=== PATIENT | female | born 1970 | race Caucasian/White ===

== ENCOUNTER 2019-11-03 22:00 | Emergency (ER) | payer BC ==
[~2019-11-03] VITALS: Ht 157.5 cm; Wt 81.7 kg
[2019-11-03] MEDS ORDERED: PROG100 (22:14)
== END 2019-11-03 23:18 | disposition home or self-care (01) ==
LOC: ER 22:00
DX: S91.311A Laceration without foreign body, right foot, initial encounter (principal); W20.8XXA Other cause of strike by thrown, projected or falling object, initial encounter
CPT/HCPCS: 12001; 73620; 99283-25; A9270-GY

== ENCOUNTER → 2023-08-18 | Outpatient (CLI) | payer BC ==
[~2023-08-18] MED LIST: PROG100
[2023-08-25 22:11] LABS: HPV HIGH RISK BY TMA Not Detected; HPV SOURCE Cervical
== END ==
LOC: LAB SHORT 19:18 → LAB 19:18
PROVIDERS: Family Medicine
DX: Z01.419 Encounter for gynecological examination (general) (routine) without abnormal findings (principal)
CPT/HCPCS: 87624; G0123

== ENCOUNTER 2024-01-10 08:41 | Day surgery (SDC) | payer BC ==
[~2024-01-10] VITALS: Ht 157.5 cm; Wt 77.0 kg
[~2024-01-10 08:41] MED LIST changes: +Lactated Ringer's 1,000 ML IV SCH
[2024-01-10] MEDS ORDERED: Budeprion Xl300 MG PO (09:42)
[2024-01-10] MEDS ORDERED: ALLEGRA ALLERG180 MG PO (09:44)
[2024-01-10] MEDS ORDERED: ENAL10 PO (09:44)
[2024-01-10] MEDS ORDERED: PROG100 PO (09:45)
[2024-01-10 09:53] VITALS: BP 137/86
[2024-01-10] MEDS ORDERED: propofoL 20 ML IV ONE (09:58)
[2024-01-10] MEDS ORDERED: Benzocaine Oral Spray 0.5ML UD ONE (09:58)
[2024-01-10] MEDS ORDERED: Midazolam HCl 1MG / ML 2ML Vial ONE (10:10)
--- NOTE | 2024-01-10 10:27 | NUR ---
01/10/24 1027 Steven Ritchie HISTORY, CHART, MEDICATIONS AND ALLERGIES REVIEWED BEFORE START OF PROCEDURE. PATIENT CONFIRMS NPO STATUS AND AGREES WITH SCHEDULED PROCEDURE. 3-LEAD EKG REVIEWED WITH PHYSICIAN PRIOR TO START OF PROCEDURE. MONITOR INTACT WITH CONTINUOUS PULSE OXIMETRY,CAPNOGRAPHY, 3-LEAD EKG, INTERMITTENT BP. SUPPLEMENTAL O2 TO BE TITRATED THROUGHOUT PROCEDURE TO MAINTAIN O2 SATURATION ABOVE 90%. PATIENT DETERMINED TO BE ASA APPROPRIATE FOR PROPOFOL SEDATION PRIOR TO START OF PROCEDURE BY
[2024-01-10 10:34] VITALS: BP 124/75
--- NOTE | 2024-01-10 10:34 | NUR ---
PT TO DAY SURGERY STEP DOWN; BEDSIDE REPORT RECEIEVED. PT IS AWAKE, ALERT AND ORIENTED; ABLE TO MOVE SELF IN BED. VSS. PT HAS NO COMPLAINTS.
--- NOTE | 2024-01-10 10:38 | NUR ---
DR OLIVAS AT BEDSIDE DISCUSSING FINDING 2 ULCERS. PLAN TO CALL IN PROTONIX 40MG DAILY FOR PT AND PT TO DISCONTINUE NSAIDS.
--- NOTE | 2024-01-10 10:46 | NUR ---
Discharge instructions reviewed with patient. Patient verbalizes understanding. Copy given to patient to take home. Patient States Post-Procedure ride home has been arranged.
[2024-01-10 10:48] VITALS: BP 115/68
--- NOTE | 2024-01-10 10:54 | NUR ---
TOLERATING PO FLUIDS WELL
--- NOTE | 2024-01-10 11:02 | NUR ---
PROTONIX 40MG PO DAILY X30 TABS AND 6 REFILLS CALLED INTO [facility]. Patient up to Ambulate independently. Gait steady.
--- NOTE | 2024-01-10 11:06 | NUR ---
Discharged via wheelchair to private car for ride home.
== END 2024-01-10 11:07 | disposition home or self-care (01) ==
LOC: ORSCMMR 08:41 → ORD 09:30 → ORSCMMR 11:07
PROVIDERS: Internal Medicine Gastroenterology
PROC: 0DB98ZX Excision of Duodenum, Via Natural or Artificial Opening Endoscopic, Diagnostic (ICD-10-PCS; principal; 2024-01-10 09:30)
PROC: 0DB58ZX Excision of Esophagus, Via Natural or Artificial Opening Endoscopic, Diagnostic (ICD-10-PCS; principal; 2024-01-10 09:30)
PROC: 0DB48ZX Excision of Esophagogastric Junction, Via Natural or Artificial Opening Endoscopic, Diagnostic (ICD-10-PCS; principal; 2024-01-10 09:30)
DX: K21.9 Gastro-esophageal reflux disease without esophagitis (principal); R05.9 Cough, unspecified; K26.3 Acute duodenal ulcer without hemorrhage or perforation; K29.80 Duodenitis without bleeding; I10 Essential (primary) hypertension; F32.A Depression, unspecified; Z79.899 Other long term (current) drug therapy
CPT/HCPCS: 88305; A9270; J2250; J2704; J7120

== ENCOUNTER 2024-08-26 12:23 | Emergency (ER) | payer BC ==
[~2024-08-26] VITALS: Ht 157.5 cm; Wt 73.9 kg
[~2024-08-26 12:23] MED LIST changes: +ALLEGRA ALLERG180 MG PO; +Budeprion Xl300 MG PO; +ENAL10 PO; -Lactated Ringer's 1,000 ML IV SCH; +PROG100 PO
[2024-08-26 12:33] VITALS: BP 150/93
[2024-08-26 12:49] LABS: BASOPHILS ABSOLUTE AUTO 0.06 K/mm3 (0.00-0.23); BASOPHILS PERCENT AUTO 1 % (0-2); EOSINOPHILS ABSOLUTE AUTO 0.21 K/mm3 (0.00-0.68); EOSINOPHILS PERCENT AUTO 3 % (0-6); Hematocrit 44.4 % (33.0-51.0); Hemoglobin 14.7 g/dL (11.5-16.0); IMMATURE GRAN ABSOLUTE AUTO 0.03 K/mm3 (0.00-0.10); IMMATURE GRAN PERCENT AUTO 0 % (0-1); LYMPHOCYTES ABSOLUTE AUTO 2.27 K/mm3 (0.84-5.20); LYMPHOCYTES PERCENT AUTO 30 % (21-46); MONOCYTES ABSOLUTE AUTO 0.61 K/mm3 (0.16-1.47); MONOCYTES PERCENT AUTO 8 % (4-13); Mean Corpuscular HGB 28.8 pg (26.0-34.0); Mean Corpuscular HGB Conc 33.1 g/dL (31.5-36.5); Mean Corpuscular Volume 87 fL (80-100); Mean Platelet Volume 9.8 fL (9.1-12.4); NEUTROPHILS ABSOLUTE AUTO 4.32 K/mm3 (1.96-9.15); NEUTROPHILS PERCENT AUTO 58 % (41-73); Platelet Count 279 K/mm3 (150-400); RDW Coefficient Variation 13.3 % (11.7-14.2); RDW Standard Deviation 42.5 fL (35.1-46.3)
[2024-08-26 13:11] LABS: Albumin, Blood 3.8 g/dL (3.4-5.0); Albumin/Globulin Ratio 0.9 (0.8-1.8); Bilirubin, Total 0.3 mg/dL (0.1-1.0); Calcium, Blood 8.5 mg/dL (8.5-10.1); Creatinine, Blood 0.77 mg/dL (0.40-1.00); Globulin, Blood 4.4 g/dL (2.2-4.0); Potassium, Blood 4.4 mmol/L (3.5-5.5); Total Protein, Blood 8.2 g/dL (6.4-8.2)
[2024-08-26] MEDS ORDERED: PANTOPRAZOLE SO40 M2 PO (14:59)
== END 2024-08-26 15:02 | disposition home or self-care (01) ==
LOC: ER 12:23
PROVIDERS: Physician Assistant
DX: R55 Syncope and collapse (principal); R42 Dizziness and giddiness; R00.2 Palpitations; Z88.1 Allergy status to other antibiotic agents; Z79.899 Other long term (current) drug therapy; I10 Essential (primary) hypertension
CPT/HCPCS: 80053; 85025; 93005; 93010; 99284-25